=== PATIENT | female | born 1990 | race Two or more races ===

== ENCOUNTER 2024-08-15 13:00 | Emergency (ER) | payer OTHER ==
[~2024-08-15] VITALS: Ht 160 cm; Wt 63.5 kg
[2024-08-15] MEDS ORDERED: 0.9 % SODIUM CHLORIDE 1,000 ML IV STA (13:51)
[2024-08-15] MEDS ORDERED: ONDANSETRON HCL 2 MG/ML VIAL IV STA (13:52)
[2024-08-15] MEDS ORDERED: FAMOTIDINE/PF 20 MG/2 ML VIAL IV ONE (14:00)
[2024-08-15] MEDS ORDERED: ONDANSETRON HCL 2 MG/ML VIAL ONE (14:17)
[2024-08-15] MEDS ORDERED: FAMOTIDINE/PF 20 MG/2 ML VIAL ONE (14:17)
[2024-08-15 14:49] LABS: HEMATOCRIT 43.5 % (36.0-45.00); MEAN CELL VOLUME 90.4 fL (80.00-100.00); MEAN CORPUSCULAR HEMOGLOBIN 31.2 pg (27.00-32.0); MEAN CORPUSCULAR HGB CONC 34.5 g/dl (32.0-36.0); PLATELET COUNT 284 K/uL (150-450); RED BLOOD COUNT 4.81 M/uL (4.00-6.00); RED CELL DISTRIBUTION WIDTH 12.7 % (11.5-14.5)
[2024-08-15 15:38] LABS: CALCIUM 9.1 mg/dL (8.5-10.1); CREATININE SERUM 0.7 mg/dL (0.55-1.02); GFR 95.79; POTASSIUM 3.5 mEq/L (3.5-5.1)
[2024-08-15 17:56] LABS: PH,URINE 6.5 (5.0-8.0); URINE APPEARANCE Clear; URINE BILIRRUBIN Negative (NEGATIVE); URINE BLOOD Negative; URINE COLOR Yellow; URINE GLUCOSE Negative (NEGATIVE); URINE LEUKOCYTE Trace; URINE NITRATE Negative; URINE PROTEIN Negative (NEGATIVE); URINE UROBILINOGEN 0.2 E.U./dl
[2024-08-15 17:57] LABS: URINE BACTERIA 2633.8 uL (0.0-1933); URINE EPITHELIAL CELLS 22.6 uL (0.0-38.8); URINE RBC 4.5 uL (0.0-20.8)
[2024-08-15 18:15] LABS: URINE CAST 0.29 uL (0.0-1.40); URINE KETONE 40 (NEGATIVE)
[2024-08-15] MEDS ORDERED: CEPHALEXIN500 MG PO (18:38)
[2024-08-15] MEDS ORDERED: PEPCID AC20 MG PO (18:38)
[2024-08-15] MEDS ORDERED: ONDANSETRON ODT8 MG PO (18:38)
== END 2024-08-15 18:49 | disposition home or self-care (01) ==
LOC: ER 13:00
PROVIDERS: Emergency Medicine
DX: K52.89 Other specified noninfective gastroenteritis and colitis (principal); R11.10 Vomiting, unspecified
CPT/HCPCS: 36415; 96365; 96366; 99282; J2405; J3490; J7030